=== PATIENT | male | born 1955 | race Caucasian/White ===

== ENCOUNTER 2018-11-21 09:45 | Outpatient (RCR) | payer BC ==
[2015-12-12 10:44] VITALS: BP 158/89
[~2018-11-21 09:45] MED LIST: GLIMEPIRIDE4 MG; GLIMEPIRIDE4 MG PO; GLUCOPHAGE850 MG/TA1 PO; GOOD SENSE ASPI81 M1 PO; LEVEMIR100 U/M1 SC; LISINOPRIL10 MG PO; LOVASTATIN10 MG PO; TELMISARTAN40 MG PO
== END 2018-11-21 10:15 | disposition home or self-care (01) ==
LOC: PT 09:45
DX: M75.01 Adhesive capsulitis of right shoulder (principal)

== ENCOUNTER → 2021-01-05 | Outpatient (CLI) | payer BC ==
[2015-12-12 10:44] VITALS: BP 158/89
[~2021-01-05] MED LIST changes: +NOVOLOG FLEX100 U/ML SQ
== END ==
LOC: LAB 08:44
DX: Z20.822 Contact with and (suspected) exposure to COVID-19 (principal)

== ENCOUNTER → 2021-04-26 | Outpatient (CLI) | payer BC | LOC: LAB 16:52 | DX: U07.1 COVID-19 (principal) ==

== ENCOUNTER 2021-05-26 07:55 | Emergency (ER) | payer BC ==
[~2021-05-26 07:55] MED LIST changes: -NOVOLOG FLEX100 U/ML SQ
[2021-05-26] MEDS ORDERED: NOVOLOG FLEX100 U/ML SQ (08:22)
[2021-05-26 08:36] LABS: BASO # 0.03 (0.02-0.10); EOS # 0.25 (0.04-0.40); EOS % 3.9 % (0.0-4.0); HEMATOCRIT 40.5 % (42.0-52.0); HEMOGLOBIN 14.2 g/dL (13.5-18.0); LYMPH# 1.12 (1.50-4.00); MEAN CELL VOLUME 100 fl (78-100); MEAN CORPUSCULAR HEMOGLOBIN 35 pg (27-31); MEAN CORPUSCULAR HGB CONC 35 g/dL (33-37); MEAN PLATELET VOLUME 8.6 fl (7.4-10.4); MONO # 0.75 (0.20-0.80); NEU # 4.14 (1.40-6.50); PLATELET COUNT 191 K/mm3 (130-400); RED BLOOD COUNT 4.05 M/mm3 (4.20-5.60); RED CELL DISTRIBUTION WIDTH 12.3 % (11.5-14.5); WHITE BLOOD COUNT 6.4 K/mm3 (4.8-10.8)
[2021-05-26 08:48] LABS: ALBUMIN 3.9 g/dL (3.4-4.8); POTASSIUM 3.8 mmol/L (3.5-5.1); SODIUM 129 mmol/L (136-145)
[2021-05-26 08:49] LABS: CALCIUM 9.8 mg/dL (8.3-10.5)
[2021-05-26 08:50] LABS: GLUCOSE 213 mg/dL (75-110); TOTAL PROTEIN 8.4 g/dL (6.2-8.1)
[2021-05-26 08:51] LABS: CARBON DIOXIDE 23 mmol/L (23-31)
[2021-05-26 08:52] LABS: TOTAL BILIRUBIN 1.7 mg/dL (0.2-1.2)
[2021-05-26 08:55] LABS: AST-SGOT 137 U/L (5-34); D-DIMER 0.51 mg/L FEU (0.15-0.50)
[2021-05-26 08:57] LABS: ALT/SGPT 103 U/L (0-55)
[2021-05-26 09:04] LABS: TROPONIN-I < 0.03 ng/mL (<0.030)
[2021-05-26 12:04] VITALS: BP 156/83
== END 2021-05-26 11:29 | disposition home or self-care (01) ==
LOC: ED 07:55
PROVIDERS: Nurse Practitioner
DX: U07.1 COVID-19 (principal); J98.11 Atelectasis; E11.9 Type 2 diabetes mellitus without complications; I10 Essential (primary) hypertension; E86.0 Dehydration; Z79.4 Long term (current) use of insulin
CPT/HCPCS: J2405; J7030; Q9967

== ENCOUNTER → 2021-07-20 | Outpatient (CLI) | payer BC ==
[~2021-07-20] MED LIST changes: +NOVOLOG FLEX100 U/ML SQ
[2021-07-20 10:50] LABS: BASO # 0.03 K/mm3 (0.02-0.10); EOS # 0.23 K/mm3 (0.04-0.40); EOS % 3.9 % (0.0-4.0); HEMATOCRIT 41.5 % (42.0-52.0); HEMOGLOBIN 14.3 g/dL (13.5-18.0); LYMPH# 1.19 K/mm3 (1.50-4.00); MEAN CELL VOLUME 103 fl (78-100); MEAN CORPUSCULAR HEMOGLOBIN 36 pg (27-31); MEAN CORPUSCULAR HGB CONC 35 g/dL (33-37); MEAN PLATELET VOLUME 8.9 fl (7.4-10.4); MONO # 0.83 K/mm3 (0.20-0.80); PLATELET COUNT 215 K/mm3 (130-400); RED BLOOD COUNT 4.03 M/mm3 (4.20-5.60)
[2021-07-20 12:21] LABS: ERYTHROCYTE SEDIMENTATION RATE 41 mm/hr (0-20)
== END ==
LOC: LAB 10:21
PROVIDERS: Nurse Practitioner Family
DX: M25.571 Pain in right ankle and joints of right foot (principal)

== ENCOUNTER → 2022-01-19 | Outpatient (CLI) | payer BC ==
[2022-01-19 10:15] LABS: BASO # 0.04 K/mm3 (0.02-0.10); EOS # 0.18 K/mm3 (0.04-0.40); EOS % 2.9 % (0.0-4.0); HEMATOCRIT 39.5 % (42.0-52.0); HEMOGLOBIN 13.7 g/dL (13.5-18.0); LYMPH# 1.14 K/mm3 (1.50-4.00); MEAN CELL VOLUME 101 fl (78-100); MEAN CORPUSCULAR HEMOGLOBIN 35 pg (27-31); MEAN CORPUSCULAR HGB CONC 35 g/dL (33-37); MEAN PLATELET VOLUME 8.4 fl (7.4-10.4); MONO # 0.69 K/mm3 (0.20-0.80); NEU # 4.08 K/mm3 (1.40-6.50); PLATELET COUNT 306 K/mm3 (130-400); RED CELL DISTRIBUTION WIDTH 11.3 % (11.5-14.5); WHITE BLOOD COUNT 6.1 K/mm3 (4.8-10.8)
[2022-01-19 10:24] LABS: ALBUMIN 4.3 g/dL (3.4-4.8)
[2022-01-19 10:25] LABS: POTASSIUM 5.1 mmol/L (3.5-5.1)
[2022-01-19 10:26] LABS: CALCIUM 10.1 mg/dL (8.3-10.5)
[2022-01-19 10:27] LABS: TOTAL PROTEIN 8.5 g/dL (6.2-8.1)
[2022-01-19 10:29] LABS: TOTAL BILIRUBIN 0.6 mg/dL (0.2-1.2)
== END ==
LOC: LAB 09:54
PROVIDERS: Internal Medicine
DX: F41.1 Generalized anxiety disorder (principal); E11.9 Type 2 diabetes mellitus without complications; I10 Essential (primary) hypertension; E29.1 Testicular hypofunction

== ENCOUNTER → 2023-07-19 | Outpatient (CLI) | payer MEDICARE ==
[~2023-07-19] MED LIST changes: +CLOPIDOGREL PO; +COLCHICINE0.6 M1 PO; +FISH OIL1 IU PO; +ISOSORBIDE30 MG PO; -LEVEMIR100 U/M1 SC; +LEVEMIR100 U/M1 SQ; +MELATONIN1 M6 PO; +MELATONIN2.5 M1 PO; +PROAIR HFA0.09 MG/AC IH; +ROSUVASTATIN CA40 MG PO; +TRULICITY1.5 MG/0.5 SC
[2023-07-19 14:41] LABS: HEMATOCRIT 30.1 % (42.0-52.0); HEMOGLOBIN 10.3 g/dL (13.5-18.0); MEAN PLATELET VOLUME 8.6 fl (7.4-10.4); RED BLOOD COUNT 3.05 M/mm3 (4.20-5.60); RED CELL DISTRIBUTION WIDTH 13.8 % (11.5-14.5); WHITE BLOOD COUNT 8.2 K/mm3 (4.8-10.8)
[2023-07-19 14:50] LABS: CALCIUM 9.6 mg/dL (8.3-10.5)
== END ==
LOC: LAB 14:16
PROVIDERS: Internal Medicine Interventional Cardiology
DX: R94.39 Abnormal result of other cardiovascular function study (principal)

== ENCOUNTER → 2023-08-20 | Outpatient (CLI) | payer MEDICARE ==
[2023-08-20 10:57] LABS: BASO # 0.04 K/mm3 (0.02-0.10); EOS # 0.23 K/mm3 (0.04-0.40); EOS % 3.1 % (0.0-4.0); HEMATOCRIT 31.1 % (42.0-52.0); HEMOGLOBIN 10.6 g/dL (13.5-18.0); LYMPH# 1.23 K/mm3 (1.50-4.00); MEAN CELL VOLUME 98 fl (78-100); MEAN CORPUSCULAR HEMOGLOBIN 33 pg (27-31); MEAN CORPUSCULAR HGB CONC 34 g/dL (33-37); MEAN PLATELET VOLUME 8.4 fl (7.4-10.4); NEU # 5.05 K/mm3 (1.40-6.50); PLATELET COUNT 175 K/mm3 (130-400); RED BLOOD COUNT 3.18 M/mm3 (4.20-5.60); RED CELL DISTRIBUTION WIDTH 13.8 % (11.5-14.5); WHITE BLOOD COUNT 7.4 K/mm3 (4.8-10.8)
[2023-08-20 11:11] LABS: ALBUMIN 4.2 g/dL (3.4-4.8)
[2023-08-20 11:13] LABS: CALCIUM 9.5 mg/dL (8.3-10.5)
[2023-08-20 11:14] LABS: TOTAL PROTEIN 8.5 g/dL (6.2-8.1)
[2023-08-20 11:16] LABS: TOTAL BILIRUBIN 0.5 mg/dL (0.2-1.2)
== END ==
LOC: LAB 10:47
DX: N18.9 Chronic kidney disease, unspecified (principal)

== ENCOUNTER 2023-10-11 09:42 | Outpatient (RCR) | payer MEDICARE | END 2023-10-17 | disposition home or self-care (01) | LOC: CARDREHAB | DX: Z48.812 Encounter for surgical aftercare following surgery on the circulatory system (principal); Z95.5 Presence of coronary angioplasty implant and graft; I25.10 Atherosclerotic heart disease of native coronary artery without angina pectoris ==

== ENCOUNTER → 2023-10-18 | Outpatient (CLI) | payer MEDICARE ==
[2023-10-18 15:03] LABS: BASO # 0.03 K/mm3 (0.02-0.10); EOS # 0.19 K/mm3 (0.04-0.40); EOS % 2.7 % (0.0-4.0); HEMATOCRIT 29.9 % (42.0-52.0); HEMOGLOBIN 10.1 g/dL (13.5-18.0); LYMPH# 1.16 K/mm3 (1.50-4.00); MEAN CELL VOLUME 98 fl (78-100); MEAN CORPUSCULAR HEMOGLOBIN 33 pg (27-31); MEAN CORPUSCULAR HGB CONC 34 g/dL (33-37); MONO # 0.76 K/mm3 (0.20-0.80); NEU # 4.73 K/mm3 (1.40-6.50); PLATELET COUNT 160 K/mm3 (130-400); RED BLOOD COUNT 3.04 M/mm3 (4.20-5.60); RED CELL DISTRIBUTION WIDTH 13.1 % (11.5-14.5); WHITE BLOOD COUNT 6.9 K/mm3 (4.8-10.8)
[2023-10-18 15:55] LABS: ALBUMIN 4.2 g/dL (3.4-4.8); CALCIUM 9.4 mg/dL (8.3-10.5); TOTAL BILIRUBIN 0.74 mg/dL (0.2-1.2)
[2023-10-18 15:56] LABS: MAGNESIUM 2.09 mg/dL (1.60-2.60)
[2023-10-18 17:27] LABS: PH-URINE 8.5 (5.0 - 8.0); URINE APPEARANCE CLEAR (CLEAR); URINE COLOR YELLOW (YELLOW)
[2023-10-18 17:31] LABS: URINE BILIRUBIN NEGATIVE (NEGATIVE); URINE GLUCOSE NEGATIVE (NEGATIVE); URINE KETONE NEGATIVE (NEGATIVE); URINE NITRATE NEGATIVE (NEGATIVE); URINE PROTEIN(semi-quant) 3+ (NEGATIVE)
[2023-10-18 17:32] LABS: URINE BLOOD 2+ (NEGATIVE); URINE LEUKOCYTE ESTERASE NEGATIVE (NEGATIVE)
== END ==
LOC: LAB 14:47
PROVIDERS: Internal Medicine
DX: Z12.5 Encounter for screening for malignant neoplasm of prostate (principal); E11.9 Type 2 diabetes mellitus without complications; I10 Essential (primary) hypertension; D64.9 Anemia, unspecified; E78.2 Mixed hyperlipidemia; K90.9 Intestinal malabsorption, unspecified; R41.3 Other amnesia

== ENCOUNTER 2023-10-19 10:00 | Outpatient (RCR) | payer MEDICARE ==
[~2023-10-19] VITALS: Ht 175.3 cm; Wt 107.0 kg
== END 2023-11-15 | disposition home or self-care (01) ==
LOC: CARDREHAB
DX: Z48.812 Encounter for surgical aftercare following surgery on the circulatory system (principal); Z95.5 Presence of coronary angioplasty implant and graft

== ENCOUNTER 2024-05-31 12:30 | Emergency (ER) | payer MEDICARE ==
[~2024-05-31] VITALS: Ht 12.7 cm; Wt 100.9 kg
[2024-05-31 13:20] LABS: BASO # 0.04 K/mm3 (0.02-0.10); EOS # 0.09 K/mm3 (0.04-0.40); EOS % 1.1 % (0.0-4.0); LYMPH# 1.46 K/mm3 (1.50-4.00); MEAN CELL VOLUME 87 fl (78-100); MEAN CORPUSCULAR HEMOGLOBIN 28 pg (27-31); MEAN CORPUSCULAR HGB CONC 32 g/dL (33-37); MEAN PLATELET VOLUME 9.4 fl (7.4-10.4); MONO # 0.82 K/mm3 (0.20-0.80); PLATELET COUNT 230 K/mm3 (130-400); RED CELL DISTRIBUTION WIDTH 15.7 % (11.5-14.5); WHITE BLOOD COUNT 8.1 K/mm3 (4.8-10.8)
[2024-05-31 13:21] LABS: HEMATOCRIT 14.4 % (42.0-52.0); HEMOGLOBIN 4.6 g/dL (13.5-18.0); RED BLOOD COUNT 1.66 M/mm3 (4.20-5.60)
[2024-05-31 13:27] LABS: ALBUMIN 3.7 g/dL (3.4-4.8)
[2024-05-31 13:28] LABS: CALCIUM 9.3 mg/dL (8.3-10.5)
[2024-05-31 13:30] LABS: TOTAL PROTEIN 7.4 g/dL (6.2-8.1)
[2024-05-31 13:31] LABS: TOTAL BILIRUBIN 0.5 mg/dL (0.2-1.2)
[2024-05-31 13:44] LABS: TROPONIN-I 0.037 ng/mL (0.00-0.033)
[2024-05-31] MEDS ORDERED: NS 1,000 ML IV SCH (14:15)
[2024-05-31 15:19] VITALS: BP 146/72
== END 2024-05-31 15:20 | disposition short-term general hospital (02) ==
LOC: ED 12:30
PROVIDERS: Family Medicine
DX: D64.9 Anemia, unspecified (principal); I25.10 Atherosclerotic heart disease of native coronary artery without angina pectoris; K92.2 Gastrointestinal hemorrhage, unspecified; E11.9 Type 2 diabetes mellitus without complications
CPT/HCPCS: J7030; P9016

== ENCOUNTER → 2024-06-06 | Outpatient (CLI) | payer MEDICARE ==
[2024-06-06 11:43] LABS: BASO # 0.04 K/mm3 (0.02-0.10); EOS # 0.39 K/mm3 (0.04-0.40); EOS % 5.9 % (0.0-4.0); HEMATOCRIT 25.5 % (42.0-52.0); HEMOGLOBIN 7.9 g/dL (13.5-18.0); LYMPH# 1.02 K/mm3 (1.50-4.00); MEAN CELL VOLUME 89 fl (78-100); MEAN CORPUSCULAR HEMOGLOBIN 28 pg (27-31); MEAN CORPUSCULAR HGB CONC 31 g/dL (33-37); MEAN PLATELET VOLUME 9.3 fl (7.4-10.4); MONO # 0.68 K/mm3 (0.20-0.80); PLATELET COUNT 219 K/mm3 (130-400); RED BLOOD COUNT 2.87 M/mm3 (4.20-5.60); RED CELL DISTRIBUTION WIDTH 15.7 % (11.5-14.5); WHITE BLOOD COUNT 6.6 K/mm3 (4.8-10.8)
[2024-06-06 12:11] LABS: ALBUMIN 3.8 g/dL (3.4-4.8)
[2024-06-06 12:12] LABS: CALCIUM 9.5 mg/dL (8.3-10.5)
[2024-06-06 12:13] LABS: TOTAL PROTEIN 7.4 g/dL (6.2-8.1)
[2024-06-06 12:15] LABS: TOTAL BILIRUBIN 0.5 mg/dL (0.2-1.2)
[2024-06-06 12:20] LABS: MAGNESIUM 1.96 mg/dL (1.60-2.60)
[2024-06-06 12:35] LABS: URINE APPEARANCE CLEAR (CLEAR); URINE COLOR YELLOW (YELLOW)
[2024-06-06 12:36] LABS: URINE BILIRUBIN NEGATIVE (NEGATIVE); URINE BLOOD NEGATIVE (NEGATIVE); URINE GLUCOSE NEGATIVE (NEGATIVE); URINE KETONE NEGATIVE (NEGATIVE); URINE LEUKOCYTE ESTERASE NEGATIVE (NEGATIVE); URINE NITRATE NEGATIVE (NEGATIVE); URINE PROTEIN(semi-quant) 1+ (NEGATIVE); URINE WBC 0-1 /hpf (0-3)
[2024-06-06 23:38] LABS: TESTOSTERONE 554 ng/dL (221-716)
== END ==
LOC: LAB 11:08
PROVIDERS: Internal Medicine
DX: E11.9 Type 2 diabetes mellitus without complications (principal); I10 Essential (primary) hypertension; E78.2 Mixed hyperlipidemia; K90.9 Intestinal malabsorption, unspecified; F52.21 Male erectile disorder

== ENCOUNTER → 2024-06-27 | Outpatient (CLI) | payer MEDICARE ==
[2024-06-27 12:33] LABS: BASO # 0.03 K/mm3 (0.02-0.10); EOS # 0.34 K/mm3 (0.04-0.40); EOS % 5.2 % (0.0-4.0); HEMATOCRIT 30.2 % (42.0-52.0); HEMOGLOBIN 9.6 g/dL (13.5-18.0); LYMPH# 1.31 K/mm3 (1.50-4.00); MEAN CELL VOLUME 92 fl (78-100); MEAN CORPUSCULAR HEMOGLOBIN 29 pg (27-31); MEAN CORPUSCULAR HGB CONC 32 g/dL (33-37); MEAN PLATELET VOLUME 8.6 fl (7.4-10.4); MONO # 0.71 K/mm3 (0.20-0.80); PLATELET COUNT 234 K/mm3 (130-400); WHITE BLOOD COUNT 6.5 K/mm3 (4.8-10.8)
== END ==
LOC: LAB 12:21
PROVIDERS: Internal Medicine
DX: E61.1 Iron deficiency (principal)

== ENCOUNTER → 2024-07-11 | Outpatient (CLI) | payer MEDICARE ==
[2024-07-11 11:31] LABS: BASO # 0.05 K/mm3 (0.02-0.10); EOS # 0.29 K/mm3 (0.04-0.40); HEMATOCRIT 33.9 % (42.0-52.0); LYMPH# 1.19 K/mm3 (1.50-4.00); MEAN CELL VOLUME 92 fl (78-100); MEAN CORPUSCULAR HEMOGLOBIN 30 pg (27-31); MEAN CORPUSCULAR HGB CONC 32 g/dL (33-37); MEAN PLATELET VOLUME 8.3 fl (7.4-10.4); MONO # 0.75 K/mm3 (0.20-0.80); NEU # 4.93 K/mm3 (1.40-6.50); PLATELET COUNT 215 K/mm3 (130-400); RED BLOOD COUNT 3.67 M/mm3 (4.20-5.60); RED CELL DISTRIBUTION WIDTH 20.2 % (11.5-14.5); WHITE BLOOD COUNT 7.2 K/mm3 (4.8-10.8)
[2024-07-11 11:40] LABS: ALBUMIN 4.1 g/dL (3.4-4.8)
[2024-07-11 11:41] LABS: CALCIUM 9.7 mg/dL (8.3-10.5)
[2024-07-11 11:42] LABS: TOTAL PROTEIN 8.1 g/dL (6.2-8.1)
[2024-07-11 11:44] LABS: TOTAL BILIRUBIN 0.4 mg/dL (0.2-1.2)
== END ==
LOC: LAB 11:20
PROVIDERS: Internal Medicine
DX: I10 Essential (primary) hypertension (principal); D64.9 Anemia, unspecified

== ENCOUNTER → 2024-08-18 | Outpatient (CLI) | payer MEDICARE ==
[2024-08-18 13:47] LABS: BASO # 0.05 K/mm3 (0.02-0.10); EOS # 0.27 K/mm3 (0.04-0.40); EOS % 3.7 % (0.0-4.0); HEMATOCRIT 39.1 % (42.0-52.0); HEMOGLOBIN 12.8 g/dL (13.5-18.0); LYMPH# 1.33 K/mm3 (1.50-4.00); MEAN CELL VOLUME 95 fl (78-100); MEAN CORPUSCULAR HEMOGLOBIN 31 pg (27-31); MEAN CORPUSCULAR HGB CONC 33 g/dL (33-37); MEAN PLATELET VOLUME 8.4 fl (7.4-10.4); MONO # 0.95 K/mm3 (0.20-0.80); NEU # 4.67 K/mm3 (1.40-6.50); PLATELET COUNT 188 K/mm3 (130-400); RED BLOOD COUNT 4.13 M/mm3 (4.20-5.60); RED CELL DISTRIBUTION WIDTH 16.9 % (11.5-14.5); WHITE BLOOD COUNT 7.3 K/mm3 (4.8-10.8)
== END ==
LOC: LAB 13:38
PROVIDERS: Internal Medicine
DX: E11.9 Type 2 diabetes mellitus without complications (principal); K92.2 Gastrointestinal hemorrhage, unspecified

== ENCOUNTER → 2024-09-25 | Outpatient (CLI) | payer MEDICARE ==
[2024-09-25 13:15] LABS: BASO # 0.03 K/mm3 (0.02-0.10); EOS # 0.21 K/mm3 (0.04-0.40); EOS % 2.8 % (0.0-4.0); HEMATOCRIT 34.7 % (42.0-52.0); HEMOGLOBIN 11.8 g/dL (13.5-18.0); LYMPH# 1.31 K/mm3 (1.50-4.00); MEAN CELL VOLUME 96 fl (78-100); MEAN CORPUSCULAR HEMOGLOBIN 33 pg (27-31); MEAN CORPUSCULAR HGB CONC 34 g/dL (33-37); MEAN PLATELET VOLUME 8.6 fl (7.4-10.4); MONO # 0.79 K/mm3 (0.20-0.80); NEU # 5.18 K/mm3 (1.40-6.50); PLATELET COUNT 183 K/mm3 (130-400); RED BLOOD COUNT 3.62 M/mm3 (4.20-5.60); RED CELL DISTRIBUTION WIDTH 13.2 % (11.5-14.5); WHITE BLOOD COUNT 7.6 K/mm3 (4.8-10.8)
[2024-09-25 13:21] LABS: ALBUMIN 4.1 g/dL (3.4-4.8)
[2024-09-25 13:22] LABS: CALCIUM 10.4 mg/dL (8.3-10.5)
[2024-09-25 13:24] LABS: TOTAL PROTEIN 8.3 g/dL (6.2-8.1)
[2024-09-25 13:25] LABS: TOTAL BILIRUBIN 0.7 mg/dL (0.2-1.2)
[2024-09-25 13:30] LABS: MAGNESIUM 1.6 mg/dL (1.60-2.60)
== END ==
LOC: LAB 12:47
PROVIDERS: Internal Medicine
DX: Z12.5 Encounter for screening for malignant neoplasm of prostate (principal); Z12.11 Encounter for screening for malignant neoplasm of colon; I10 Essential (primary) hypertension; K90.9 Intestinal malabsorption, unspecified; M10.9 Gout, unspecified

== ENCOUNTER → 2024-10-15 | Outpatient (CLI) | payer MEDICARE ==
[2024-10-15 14:13] LABS: BASO # 0.02 K/mm3 (0.02-0.10); EOS # 0.31 K/mm3 (0.04-0.40); EOS % 5.2 % (0.0-4.0); HEMATOCRIT 32.3 % (42.0-52.0); HEMOGLOBIN 10.6 g/dL (13.5-18.0); LYMPH# 0.84 K/mm3 (1.50-4.00); MEAN CELL VOLUME 100 fl (78-100); MEAN CORPUSCULAR HEMOGLOBIN 33 pg (27-31); MEAN CORPUSCULAR HGB CONC 33 g/dL (33-37); MONO # 0.94 K/mm3 (0.20-0.80); NEU # 3.82 K/mm3 (1.40-6.50); PLATELET COUNT 217 K/mm3 (130-400); RED BLOOD COUNT 3.23 M/mm3 (4.20-5.60); RED CELL DISTRIBUTION WIDTH 13.9 % (11.5-14.5)
[2024-10-15 14:16] LABS: ALBUMIN 3.9 g/dL (3.4-4.8)
[2024-10-15 14:18] LABS: CALCIUM 9.9 mg/dL (8.3-10.5)
[2024-10-15 14:19] LABS: TOTAL PROTEIN 7.9 g/dL (6.2-8.1)
[2024-10-15 14:21] LABS: TOTAL BILIRUBIN 0.5 mg/dL (0.2-1.2)
[2024-10-15 14:26] LABS: MAGNESIUM 1.62 mg/dL (1.60-2.60)
== END ==
LOC: LAB 13:54
PROVIDERS: Internal Medicine
DX: I10 Essential (primary) hypertension (principal)

== ENCOUNTER → 2024-12-02 | Outpatient (CLI) | payer MEDICARE ==
[2024-12-02 14:49] LABS: ALBUMIN 4.2 g/dL (3.4-4.8)
[2024-12-02 14:50] LABS: CALCIUM 11.2 mg/dL (8.3-10.5)
[2024-12-02 14:51] LABS: BASO # 0.03 K/mm3 (0.02-0.10); EOS # 0.06 K/mm3 (0.04-0.40); EOS % 0.8 % (0.0-4.0); HEMATOCRIT 35.5 % (42.0-52.0); HEMOGLOBIN 12.3 g/dL (13.5-18.0); MEAN CELL VOLUME 94 fl (78-100); MEAN CORPUSCULAR HEMOGLOBIN 33 pg (27-31); MEAN CORPUSCULAR HGB CONC 35 g/dL (33-37); MONO # 0.67 K/mm3 (0.20-0.80); NEU # 5.97 K/mm3 (1.40-6.50); PLATELET COUNT 169 K/mm3 (130-400); RED BLOOD COUNT 3.78 M/mm3 (4.20-5.60); RED CELL DISTRIBUTION WIDTH 12.9 % (11.5-14.5); TOTAL PROTEIN 8.6 g/dL (6.2-8.1)
[2024-12-02 14:53] LABS: TOTAL BILIRUBIN 0.9 mg/dL (0.2-1.2)
[2024-12-02 14:58] LABS: MAGNESIUM 1.67 mg/dL (1.60-2.60)
== END ==
LOC: LAB 14:19
PROVIDERS: Internal Medicine
DX: E11.9 Type 2 diabetes mellitus without complications (principal); E78.2 Mixed hyperlipidemia; D64.9 Anemia, unspecified; I10 Essential (primary) hypertension

== ENCOUNTER → 2024-12-24 | Outpatient (CLI) | payer MEDICARE | LOC: RAD 11:40 | DX: S92.532A Displaced fracture of distal phalanx of left lesser toe(s), initial encounter for closed fracture (principal); X58.XXXA Exposure to other specified factors, initial encounter ==